=== PATIENT | female | born 1950 | race Caucasian/White ===

== ENCOUNTER 2024-02-07 11:02 | Outpatient (AMB) | payer MEDICARE, SELFPAY ==
--- NOTE | 2024-02-07 11:03 | A.OFFVIS_ITS ---
Vital Signs 3 02/07/24 11:04 Height 5 ft 4.5 in Weight 203 lb BMI 34.3 BP 145/67 H Blood Pressure Location Lt brachial Position Sitting Respiration 15 Pulse 58 Pulse Source Pulse Oximeter Pulse Oximetry (%) 98 Oxygen Delivery Method Room Air Intake Visit Reasons: Chronic right-sided low back pain Allergies latex Allergy (Severe, Verified 02/07/24 11:06) skin peeling adhesive Adverse Reaction (Severe, Verified 02/07/24 11:06) skin peeling Medication List - Last Reconciled 02/07/24 by Radha Holbrook LPN antiarthritic combination no.2 (glucosamine-chondroitin) mg PO [id number]-jhc-cek [id number] [id number] ej-lh-zq-unit 1 tab PO BID celecoxib (Celebrex) 100 mg PO BID metoprolol tartrate 25 mg PO DAILY olmesartan 5 mg PO DAILY tramadol 50 mg PO BID PRN HPI HPI Chronic right-sided low back pain: Details: 73-year-old female who presents today to the office for chronic low back pain. She reports most of her pain in her back that radiates down to her legs. Her left side is worse compared to the right side. She reports burning and paresthesia sensations in her leg. She reports that her pain is worse with sitting down or walking. She states that she feels heaviness in her back when she starts walking. She reports some weakness in her left leg. She had a right hip replacement in the past. She usually does gentle walking at home. She denies any strenuous activities at home. She is taking Celebrex. She deferred surgical interventions for now.?She has not tried spine injections in the past. [facility] Medical History (Updated 02/07/24 @ 11:46 by Ad Sevilla MD) Hypertension Ebwll-Wfszyxgca-Ceicy (WPW) syndrome Surgical History (Updated 02/07/24 @ 11:46 by Ad Sevilla MD) H/O total hip arthroplasty Review of Systems Const All systems reviewed & are unremarkable except as noted in HPI and below Physical Exam Vital Signs: Last Vital Signs Pulse 58 02/07/24 11:04 Resp 15 02/07/24 11:04 BP 145/67 H 02/07/24 11:04 Pulse Ox 98 02/07/24 11:04 Oxygen Delivery Method Room Air 02/07/24 11:04 BMI result Body Mass Index 34.3 General: Appears afebrile. Alert and oriented. Mood and affect appropriate. Follows and participates in conversation appropriately. Respiratory effort is unlabored. Able to transition from sit to stand unassisted. Ambulates with bilaterally normal heel strike and toe off. She is able to stand on her toes and heels individually on both left and right sides. Standing on the left heel reproduces discomfort in the left lower extremity. Results Reviewed Results Reviewed: Assessment & Plan Assessment & Plan (1) Lumbar radicular pain: Code(s): M54.16 - Radiculopathy, lumbar region Category: Medical (2) Lumbar spinal stenosis: Code(s): M48.061 - Spinal stenosis, lumbar region without neurogenic claudication Category: Medical Plan 73-year-old female with lumbar radicular pain as well as low back pain, secondary vertebral endplate degeneration and facet degeneration, and multi- level neural foraminal stenosis. I discussed interventional and surgical treatment options. A referral was provided to spine surgery department. She will seek the surgical opinion to see what treatment options might be available for her symptoms and MRI findings. Meanwhile, she will think about pursuing injections, and when she is ready to proceed, she will call to let us know. We will plan for a left L3-4 parasagittal epidural steroid injection. Discussed the risks and benefits of the procedure with the patient in detail. All questions were answered. The patient is on board with the plan. Justification for interventional therapy: ? Patient with average pain > 6/10 ? Patient has exhausted conservative therapy ? Patient unable to tolerate physical therapy due to pain. . Patient has a good understanding of their pain condition and has appropriate mental and social support Scribed for Dr. Sevilla by Campbell Ramírez, medical safety director, on 02/07/2024. I, Dr. Sevilla, have personally reviewed and agree with the information entered by the scribe. Orders: Referrals 2 Neurosurgery Referral M48.061 - Spinal stenosis, lumbar region without neurogenic claudication, M54.16 - Radiculopathy, lumbar region Medications: New 2 tramadol 50 mg PO BID PRN Coding Level of Care Code New Pt Level 4 (83290) Diagnoses Lumbar radicular pain M54.16 Lumbar spinal stenosis M48.061
[2024-02-07 11:04] VITALS: BP 145/67; PULSE 58; RESP 15; O2SAT 98; BMI 34.3
== END 2024-02-07 11:47 | disposition home or self-care (01) ==
PROVIDERS: PCP Internal Medicine; Visit Provider Internal Medicine
DX: M54.16 Radiculopathy, lumbar region (principal); M48.061 Spinal stenosis, lumbar region without neurogenic claudication
CPT/HCPCS: 99204

== ENCOUNTER → 2024-02-07 11:02 | Outpatient (BNVA) | payer MEDICARE, SELFPAY | PROVIDERS: PCP Internal Medicine; Visit Provider Internal Medicine | DX: M54.16 Radiculopathy, lumbar region (principal); M48.061 Spinal stenosis, lumbar region without neurogenic claudication | CPT/HCPCS: 99202 ==